=== PATIENT | male | born 1990 | race Caucasian/White ===

== ENCOUNTER 2019-04-18 18:42 | Inpatient (IN) | payer SELFPAY ==
[~2019-04-18] VITALS: Ht 182.8 cm; Wt 174.4 kg
[2019-04-18 18:44] VITALS: BP 124/81
--- NOTE | 2019-04-18 19:17 | NUR ---
PT REFUSED IV AT THIS TIME.
[2019-04-18 19:27] LABS: BASO % 0.3 % (0.0-1.0); EOS # 0.1 10*3/uL (0.0-0.4); EOS % 0.7 % (1.0-4.0); HEMATOCRIT 47.7 % (42.0-52.0); HEMOGLOBIN 15.6 g/dl (14.0-18.0); LYMPH # 2.4 10*3/uL (1.3-4.4); LYMPH % 25.4 % (27.0-41.0); MEAN CELL VOLUME 87.5 fl (80.0-94.0); MEAN CORPUSCULAR HGB 28.6 pg (27.0-31.0); MEAN CORPUSCULAR HGB CONC 32.7 g/dl (33.0-37.0); MEAN PLATELET VOLUME 11.3 fl (9.6-12.3); MONO # 0.7 10*3/uL (0.1-1.0); NEUT # 6.3 10*3/uL (2.3-7.9); NEUT % 66.3 % (47.0-73.0); PLATELET COUNT AUTOMATED 237 10*3/uL (130-400); RED BLOOD COUNT 5.45 10*6/uL (4.50-5.90); RED CELL DISTRI WIDTH 13.2 % (0-14.5); WHITE BLOOD COUNT 9.4 10*3/uL (4.8-10.8)
[2019-04-18 19:43] LABS: ALBUMIN 4.2 gm/dl (3.1-4.5); ALKALINE PHOSPHATASE 59 U/L (45-117); BUN 14 mg/dl (7-24); CHLORIDE 108 mmol/L (98-107); POTASSIUM 4.1 mmol/L (3.5-5.1); SGOT/AST 29 IU/L (3-35); SGPT/ALT 62 U/L (12-78); SODIUM 140 mmol/L (136-145); TOTAL PROTEIN 7.2 gm/dL (6.4-8.2)
[2019-04-18 19:44] LABS: TROPONIN I < 0.015 ng/ml (<0.045)
[2019-04-18 19:52] LABS: ACT PARTIAL THROMBO TIME 26.9 SECONDS (20.0-32.1); INTERNATIONAL NORM RATIO 0.9 (2.0-3.5)
[2019-04-18 21:45] VITALS: BP 146/98
--- NOTE | 2019-04-18 21:45 | NUR ---
A 28, admitted to , under the services of MILY Phelan DO with a diagnosis of DIZZINESS, CHEST PAIN. Chief complaint is LEFT GREAT TOE PAIN, DIZZINESS, CHEST PAIN. Patient arrived via stretcher from ER. Monitor applied. Initial assessment completed. Vital signs taken and recorded. MILY PHELAN DO notified of admission to the unit. Orders received. See assessment for past medical history, medications and allergies. Patient and/or family oriented to unit. [facility] visitation policy reviewed. Clothing/patient valuable form completed. NAILA PETERS
--- NOTE | 2019-04-18 21:45 | NUR ---
A 28, admitted to , under the services of MILY Phelan DO with a diagnosis of DIZZINESS, CHEST PAIN. Chief complaint is R GREAT TOE PAIN, DIZZINESS, CHEST PAIN. Patient arrived via stretcher from ER. Monitor applied. Initial assessment completed. Vital signs taken and recorded. MILY PHELAN DO notified of admission to the unit. Orders received. See assessment for past medical history, medications and allergies. Patient and/or family oriented to unit. [facility] visitation policy reviewed. Clothing/patient valuable form completed. NAILA PETERS
--- NOTE | 2019-04-18 22:09 | NUR ---
'S ANSWERING SERVICE CALLED REGARDING CONSULT. INFORMATION, INCLUDING CALL BACK NUMBER, LEFT WITH GENERAL INTERN.
--- NOTE | 2019-04-18 23:49 | NUR ---
ORTHOSTATIC BPs TAKEN PER ORDER & WERE NEGATIVE. PT DENIES ANY DIZZINESS.
[2019-04-19] VITALS: BP 126/80
--- NOTE | 2019-04-19 00:30 | NUR ---
SITTING AT BEDSIDE WITH NO DISTRESS NOTED. RESPIRATIONS EASY. LUNGS CLEAR. PULSE OX 98% RA. CALL LIGHT WITHIN REACH. NO VOICED COMPLAINTS
--- NOTE | 2019-04-19 06:00 | NUR ---
SLEPT THROUGHOUT NIGHT WITH NO DISTRESS NOTED. RESPIRATIONS EASY. NPO STATUS MAINTAINED FOR TESTING. CALL LIGHT WITHIN REACH. NO VOICED COMPLAINTS THIS SHIFT
[2019-04-19 06:26] LABS: BASO % 0.3 % (0.0-1.0); EOS # 0.1 10*3/uL (0.0-0.4); EOS % 1.6 % (1.0-4.0); LYMPH % 31.5 % (27.0-41.0); MEAN CELL VOLUME 88.3 fl (80.0-94.0); MEAN CORPUSCULAR HGB 28.2 pg (27.0-31.0); MEAN CORPUSCULAR HGB CONC 31.9 g/dl (33.0-37.0); MEAN PLATELET VOLUME 11.5 fl (9.6-12.3); MONO # 0.6 10*3/uL (0.1-1.0); MONO % 9.1 % (3.0-9.0); NEUT # 3.7 10*3/uL (2.3-7.9); NEUT % 57.2 % (47.0-73.0); PLATELET COUNT AUTOMATED 210 10*3/uL (130-400); RED BLOOD COUNT 5.32 10*6/uL (4.50-5.90); RED CELL DISTRI WIDTH 13.2 % (0-14.5); WHITE BLOOD COUNT 6.4 10*3/uL (4.8-10.8)
[2019-04-19 06:39] LABS: BUN 13 mg/dl (7-24); CHLORIDE 108 mmol/L (98-107); CHOLESTEROL 180 mg/dL (<200); CREATININE 0.99 mg/dL (0.70-1.30); PHOSPHOROUS 3.3 mg/dL (2.5-4.9); SODIUM 140 mmol/L (136-145); TRIGLYCERIDES 174 mg/dl (<150); VLDL CHOLESTEROL 35 mg/dL (6-40)
[2019-04-19 06:47] LABS: HDL CHOLESTEROL 36 mg/dl (40-60); LDL CHOLESTEROL 109 mg/dL (9-159)
--- NOTE | 2019-04-19 07:20 | NUR ---
DR OSEI (PODIATRY) CONTACTED REGARDING CONSULT. NO ORDERS RECEIVED AT THIS TIME
--- NOTE | 2019-04-19 07:38 | NUR ---
TOOK OVER CARE OF PT. PT RESTING IN BED, RESPIRATIONS EASY AND UNLABORED. PT DENIES ANY PAIN AT THIS TIME. PT IS WAITING TO HAVE STRESS/ECHO TESTS DONE. WILL CONTINUE TO MONITOR. CALL LIGHT IN REACH.
[2019-04-19 08:00] VITALS: BP 130/72
--- NOTE | 2019-04-19 08:49 | NUR ---
PT OFF OF FLOOR FOR STRESS TEST AT THIS TIME.
--- NOTE | 2019-04-19 09:00 | NUR ---
Video Intern in to talk to patient. Patient states lives at home with . There are few steps in the home. Physician: none Pharmacy: none Home health services: none Patient's level of ADLs: INDEPENDENT Patient has working utilities: all working DME: none Follow-up physician's appointment after d/c: will be made by hospitalist nurse director with doctor of patient's choice Does patient want to access PORTAL?: no Discharge plan discussed with patient, he lives at home with , is independent in adls and ambulation, works, drives, he will return home when medically stable and denies any home needs, discussed with him being self pay and that Rae from [employer] will bring him paperwork to fill out for help with the cost of the hospital stay, patient states he is able to pay for any prescriptions he may get. JOSE HALE
--- NOTE | 2019-04-19 10:50 | NUR ---
INFORMED CONSENT SIGNED FOR CARDIOLYTE STRESS TEST WITH DR. GARCIA. RESTING EKG NSR, HR 70, BP 132/80. COMPLETED 6:30 OF A STANDARD MARI PROTOCOL COMPLETING 3:30 OF A HELD STAGE II, 2.5MPH/12% GRADE. PEAK HEART RATE OF 170 ACHIEVED WHICH IS 89% PREDICTED MAXIMUM AND A PEAK BP OF 176/92. HAS A FAIR EXERCISE TOLERANCE. NO ARRHYTHMIAS OR ST CHANGES NOTED. PT DID C/O SOB. LAST RECOVERY HR 121, BP 118/80. WAITING NUCLEAR SCANNING IN STABLE CONDITION.
[2019-04-19 12:00] VITALS: BP 125/77
--- NOTE | 2019-04-19 12:09 | NUR ---
PT GIVEN NORCO AT THIS TIME FOR PAIN TO LEFT GREAT TOE. WILL MONITOR FOR EFFECTIVENESS. CALL LIGHT IN REACH.
--- NOTE | 2019-04-19 13:09 | NUR ---
MAGGIE EFFECTIVE PER PT.
--- NOTE | 2019-04-19 14:40 | NUR ---
Discharge instructions reviewed with patient/family. Patient receptive and verbalizes understanding. Follow-up care arranged. Written instructions given to patient/family. CARSON BOLAND
== END 2019-04-19 14:40 | disposition home or self-care (01) | DRG 206 ==
LOC: ED 18:42 → EDHOLD 20:39 → 4E 21:02
PROVIDERS: Physician Assistant; Student in an Organized Health Care Education/Training Program; ADMIT Family Medicine
PROC: 0HBRXZZ Excision of Toe Nail, External Approach (ICD-10-PCS; principal; 2019-04-19)
PROC: 4A02XM4 Measurement of Cardiac Total Activity, External Approach (ICD-10-PCS; principal; 2019-04-19)
PROC: 3E073KZ Introduction of Other Diagnostic Substance into Coronary Artery, Percutaneous Approach (ICD-10-PCS; principal; 2019-04-19)
DX: M94.0 Chondrocostal junction syndrome [Tietze] (principal); Z68.43 Body mass index [BMI] 50.0-59.9, adult; R09.1 Pleurisy; L03.032 Cellulitis of left toe; R42 Dizziness and giddiness; R00.0 Tachycardia, unspecified; L60.0 Ingrowing nail; D72.810 Lymphocytopenia; F17.290 Nicotine dependence, other tobacco product, uncomplicated; K21.9 Gastro-esophageal reflux disease without esophagitis; F41.9 Anxiety disorder, unspecified; E66.01 Morbid (severe) obesity due to excess calories; J30.2 Other seasonal allergic rhinitis; Z82.49 Family history of ischemic heart disease and other diseases of the circulatory system; Z81.8 Family history of other mental and behavioral disorders; Z71.3 Dietary counseling and surveillance